=== PATIENT | male | born 1960 | race Caucasian/White ===

== ENCOUNTER 2018-05-19 20:26 | Emergency (ER) | payer OTHER ==
[2018-05-19 20:46] LABS: PLATELET COUNT 263 10^3/uL (150-400)
--- NOTE | 2018-05-19 20:58 | EDPHY ---
HPI/HX/ROS/PE/MDM Narrative: CHIEF COMPLAINT: Chest pain HPI: This patient is a 57 year old male with history of hyperlipidemia. He arrives today with his complaining of chest pain. This evening, he was running on the treadmill at the [facility] and after about 1 mile, he developed chest pain associated with breathing. He was able to finish another two miles though the sensation persisted. This continued after he returned home and later, while in bed he noted some chills and tremors. These resolved, but he continues to have chest pressure with a mild burning sensation. He notes that the pain is increased with deep inspiration. He has never had similar discomfort in the past. No pain or swelling in his legs. He denies any history of blood clots. He endorses family history of cardiac disease in his maternal family including uncles and his grandfather while in their 50s. He is a nonsmoker. REVIEW OF SYSTEMS: A comprehensive 10 system review of systems is otherwise negative aside from elements mentioned in the history of present illness and medical decision making. PMH: Hyperlipidemia. SOCIAL HISTORY: . at [employer]. Works as a senior systems software engineer. PHYSICAL EXAM: General:Patient is alert, in no acute distress. ENT:Eyes are normal to inspection. ENT inspection normal. Neck: Normal inspection. Full range of motion. Respiratory:No respiratory distress. Breath sounds normal bilaterally. Cardiovascular: Regular rate and rhythm. Strong peripheral pulses. Normal cap refill. Abdomen:The abdomen is nontender to palpation. There are no peritoneal signs. There are normal bowel sounds. Back: Normal to inspection. No tenderness to palpation. Skin: Normal color. No rash. Warm and dry. Extremities: Normal appearance. Full range of motion. Neuro: Oriented x3. Normal motor function. Normal sensory function. ED Course: 57 y/o male presents with chest pain which began while running this evening. Exam unremarkable. Plan for EKG, chest x-ray, labs including CBC, chemistries, troponin. EKG was ordered and interpreted by myself. Please see [employer] system for official reading. Troponin negative. Chest x-ray is unremarkable. Further laboratory studies are unremarkable. Discussed admission vs. outpatient cardiac followup. The patient prefers outpatient followup if possible. Plan for repeat EKG and troponin. Outpatient cardiac referral ordered per standard ED protocol. Repeat troponin and EKG are negative for acute cardiac processes. Plan to discharge home in good condition. Follow up and strict return precautions discussed. The patient is comfortable with this plan. - Data Points Imaging Results: Imaging Impressions Chest X-Ray 05/19/18 20:41 Impression: No evidence of acute cardiopulmonary abnormality. Laboratory Results: Laboratory Results 05/19/18 20:37 05/19/18 20:37 05/19/18 05/19/18 05/19/18 21:36 20:41 20:37 WBC RBC Hgb Hct MCV MCH MCHC RDW Plt Count MPV Neut % (Auto) Lymph % (Auto) [place] % (Auto) Eos % (Auto) Baso % (Auto) Nucleat RBC Rel Count Absolute Neuts (auto) Absolute Lymphs (auto) Absolute Monos (auto) Absolute Eos (auto) Absolute Basos (auto) Absolute Nucleated RBC Immature Gran % Immature Gran # D-Dimer 0.41 ug/mLFEU ug/mLFEU (0.00-0.50) Sodium Potassium Chloride Carbon Dioxide Anion Gap BUN Creatinine Estimated GFR Glucose Calcium POC Troponin I 0.00 ng/mL ng/mL 0.00 ng/mL ng/mL (0.00-0.08) (0.00-0.08) 05/19/18 05/19/18 20:37 20:37 WBC 9.76 10^3/uL H 10^3/uL (3.80-9.50) RBC 5.27 10^6/uL 10^6/uL (4.40-6.38) Hgb 15.9 g/dL g/dL (13.7-17.5) Hct 45.2 % % (40.0-51.0) MCV 85.8 fL fL (81.5-99.8) MCH 30.2 pg pg (27.9-34.1) MCHC 35.2 g/dL g/dL (32.4-36.7) RDW 13.2 % % (11.5-15.2) Plt Count 263 10^3/uL 10^3/uL (150-400) MPV 8.6 fL L fL (8.7-11.7) Neut % (Auto) 48.4 % % (39.3-74.2) Lymph % (Auto) 37.3 % % (15.0-45.0) [place] % (Auto) 11.3 % % (4.5-13.0) Eos % (Auto) 1.8 % % (0.6-7.6) Baso % (Auto) 0.8 % % (0.3-1.7) Nucleat RBC Rel Count 0.0 % % (0.0-0.2) Absolute Neuts (auto) 4.72 10^3/uL 10^3/uL (1.70-6.50) Absolute Lymphs (auto) 3.64 10^3/uL H 10^3/uL (1.00-3.00) Absolute Monos (auto) 1.10 10^3/uL H 10^3/uL (0.30-0.80) Absolute Eos (auto) 0.18 10^3/uL 10^3/uL (0.03-0.40) Absolute Basos (auto) 0.08 10^3/uL 10^3/uL (0.02-0.10) Absolute Nucleated RBC 0.00 10^3/uL 10^3/uL (0-0.01) Immature Gran % 0.4 % % (0.0-1.1) Immature Gran # 0.04 10^3/uL 10^3/uL (0.00-0.10) D-Dimer Sodium 134 mEq/L L mEq/L (135-145) Potassium 3.8 mEq/L mEq/L (3.5-5.2) Chloride 101 mEq/L mEq/L (97-110) Carbon Dioxide 26 mEq/l mEq/l (22-31) Anion Gap 7 mEq/L mEq/L (6-14) BUN 19 mg/dL mg/dL (7-23) Creatinine 0.9 mg/dL mg/dL (0.7-1.3) Estimated GFR > 60 Glucose 94 mg/dL mg/dL (70-100) Calcium 10.4 mg/dL mg/dL (8.5-10.4) POC Troponin I Point of Care Test Results: Chemistry 05/19/18 05/19/18 21:36 20:41 POC Troponin I 0.00 ng/mL ng/mL 0.00 ng/mL ng/mL (0.00-0.08) (0.00-0.08) General Time Seen by Provider: 05/19/18 20:41 Initial Vital Signs: Initial Vital Signs Temperature (C) 36.5 C 05/19/18 20:28 Heart Rate 88 05/19/18 20:28 Respiratory Rate 16 05/19/18 20:28 Blood Pressure 188/89 H 05/19/18 20:28 O2 Sat (%) 97 05/19/18 20:28 O2 Delivery Mode Room Air Allergies/Adverse Reactions: No Known Allergies Allergy (Unverified 05/19/18 20:27) Home Medications: Medication Instructions Recorded NK [No Known Home Meds] 05/19/18 Departure - Departure Disposition: Home, Routine, Self-Care Clinical Impression: Chest pain Qualifiers: Chest pain type: chest pain on breathing Qualified Code(s): R07.1 - Chest pain on breathing Condition: Good Instructions: Chest Pain (ED) Additional Instructions: Follow-up with your primary doctor within 2-3 days. Follow up with a mechanical design technician for further testing, as soon as possible, within one week. Return to the Emergency Department for fever, chest pain, shortness of breath, increasing pain or other worsening of condition. As we discussed, it is impossible to fully rule out heart disease as the cause of your chest pain in the emergency department. We would be happy to reevaluate you and observe you in the hospital at any time. Referrals: Chito Tucker MD [Medical Doctor] - As per Instructions Report Scribed for: Obed Rolon Report Scribed by: Paulette Meneses Date of Report: 05/19/18 Time of Report: 21:56 Physician Review and Approval Statement: Portions of this note were transcribed by an ED scribe. I personally performed the history, physical exam, and medical decision making; and confirm the accuracy of the information in the transcribed note.
[2018-05-19 22:06] VITALS: BP 113/70
--- NOTE | 2018-05-20 22:48 | CPEKG ---
Test Reason : OPEN Blood Pressure : / mmHG Vent. Rate : 069 BPM Atrial Rate : 068 BPM P-R Int : 169 ms QRS Dur : 100 ms QT Int : 401 ms P-R-T Axes : 074 013 054 degrees QTc Int : 430 ms Sinus rhythm Confirmed by Obed Rolon ([id number]) on 05/20/2018 10:48:34 PM Referred By: Obed Rolon Confirmed By:Obed Rolon
--- NOTE | 2018-05-20 22:49 | CPEKG ---
Test Reason : OPEN Blood Pressure : / mmHG Vent. Rate : 091 BPM Atrial Rate : 091 BPM P-R Int : 151 ms QRS Dur : 101 ms QT Int : 355 ms P-R-T Axes : 080 -03 057 degrees QTc Int : 437 ms Sinus rhythm Confirmed by Obed Rolon ([id number]) on 05/20/2018 10:48:39 PM Referred By: PHYSICIAN ED Confirmed By:Obed Rolon
== END 2018-05-19 22:07 | disposition home or self-care (01) ==
DX: R07.1 Chest pain on breathing (principal); E78.5 Hyperlipidemia, unspecified
CPT/HCPCS: 84484-ER